=== PATIENT | female | born 1935 | race Asian ===

== ENCOUNTER 2022-02-09 10:55 | Emergency (ER) | payer MEDICARE, OTHER ==
[~2022-02-09] VITALS: Ht 165.1 cm; Wt 64.0 kg
--- NOTE | 2022-02-09 11:15 | NUR ---
FRANCISCA FROM [facility] C/O HEAD PAIN, L SHOULDER AND LEFT LEG PAIN S/P GLF. AAOX4 NOT IN DISTRESS, MILD PAIN VERBALIZED.
[2022-02-09] MEDS ORDERED: ACETAMINOPHEN 325 MG TABLET PO ONE (11:30)
--- NOTE | 2022-02-09 11:45 | NUR ---
PATIENT VERBALIZED HAD 2TABS. FOR PAIN AT 0900. MD INFORMED AND ORDERS TO HOLD TYLENOL 325MG.
--- NOTE | 2022-02-09 11:59 | NUR ---
X-RAY TECH. AT BED SIDE
[2022-02-09] MEDS ORDERED: ACETAMINOPHEN 325 MG TABLET ONE (12:37)
--- NOTE | 2022-02-09 14:08 | NUR ---
HANSA [phone]
[2022-02-09] MEDS ORDERED: ACET325T53 PO (14:13)
--- NOTE | 2022-02-09 14:53 | NUR ---
[facility] CALLED FOR TRANSPORT ETA IS 1700 PER MAHOGANY.
--- NOTE | 2022-02-09 17:20 | NUR ---
Patient discharged to [facility] via ambulance in stable condition. Written and verbal after care instructions given. Patient verbalizes understanding of instruction.
[2022-02-09 17:35] VITALS: BP 110/60
== END 2022-02-09 17:20 | disposition home health service (06) ==
LOC: ER 11:00
DX: S09.8XXA Other specified injuries of head, initial encounter (principal); M25.512 Pain in left shoulder; M54.6 Pain in thoracic spine; M25.552 Pain in left hip; I11.0 Hypertensive heart disease with heart failure; I50.9 Heart failure, unspecified; E11.22 Type 2 diabetes mellitus with diabetic chronic kidney disease; N18.9 Chronic kidney disease, unspecified; Z86.2 Personal history of diseases of the blood and blood-forming organs and certain disorders involving the immune mechanism; Z86.79 Personal history of other diseases of the circulatory system; Z88.6 Allergy status to analgesic agent; Z88.8 Allergy status to other drugs, medicaments and biological substances; Z79.1 Long term (current) use of non-steroidal anti-inflammatories (NSAID); W18.30XA Fall on same level, unspecified, initial encounter; Y93.89 Activity, other specified; Y92.89 Other specified places as the place of occurrence of the external cause; Y99.8 Other external cause status
CPT/HCPCS: 70450-TC; 72125-TC; 73030-TC; 73502; 73564-TC

== ENCOUNTER 2024-12-31 15:50 | Inpatient (IN) | payer MEDICARE, OTHER ==
[~2024-12-31] VITALS: Ht 154.9 cm; Wt 55.8 kg
[~2024-12-31 15:50] MED LIST: ACET325T53 PO
[2024-12-31 16:26] LABS: ABG BASE EXCESS 0.3 mmol/L (-2.0-3.0); ABG OXYGEN SATURATION 96.7 % (94.0-98.0); ABG PCO2 38.4 mmHg (32.0-45.0); ABG PH 7.424 (7.350-7.450); ABG PO2 88.1 mmHg (83.0-108.0); ABG TOTAL HEMOGLOBIN 12.7 G/dL (12.0-16.0); COHb 0.3 % (0.5-1.5); MetHb 0.2 % (0.0-1.5); O2Hb 96.2 % (94.0-97.0); SITE, ABG LEFT RADIAL
[2024-12-31 16:51] LABS: BASOPHILS # (AUTO) 0.1 K/uL (0.0-0.2); BASOPHILS % (AUTO) 0.7 % (0.0-2.0); EOSINOPHILS # (AUTO) 0.2 K/uL (0.0-0.7); HEMOGLOBIN 12.1 g/dL (11.5-14.8); NEUTROPHILS # (AUTO) 6.7 K/uL (1.8-8.9)
[2024-12-31] MEDS ORDERED: CRAN425C6 PO (16:51)
[2024-12-31] MEDS ORDERED: CHOL100062 PO (16:51)
[2024-12-31] MEDS ORDERED: SODI15DR4 LEFTEYE (16:51)
[2024-12-31] MEDS ORDERED: DIVA-76 PO (16:51)
[2024-12-31] MEDS ORDERED: DIVA125T32 PO (16:51)
[2024-12-31] MEDS ORDERED: IPRA3AMP22 IH (16:51)
[2024-12-31] MEDS ORDERED: MAGN400O6 PO (16:51)
[2024-12-31] MEDS ORDERED: MULT-447 PO (16:51)
[2024-12-31] MEDS ORDERED: INSU100I47 SQ (16:51)
[2024-12-31 16:54] LABS: EOSINOPHILS % (AUTO) 2.5 % (0.0-6.0); HEMATOCRIT 37 % (33-45); INR 1.1 (0.91-1.10); LYMPHOCYTES # (AUTO) 1.7 K/uL (0.8-4.8); LYMPHOCYTES % (AUTO) 18.3 % (20.0-44.0); MEAN CORPUSCULAR HEMOGLOBIN 30 PG (26.0-33.0); MEAN CORPUSCULAR HGB CONC 33 g/dl (31.0-36.0); MEAN CORPUSCULAR VOLUME 92 fL (82-100); MONOCYTES # (AUTO) 0.5 K/uL (0.1-1.30); MONOCYTES % (AUTO) 5.7 % (2.0-12.0); NEUTROPHILS % (AUTO) 72.8 % (43.0-81.0); PLATELET COUNT (AUTO) 367 K/uL (150-450); PROTHROMBIN TIME 11.6 SECS (9.2-11.1); RED BLOOD CELL COUNT(AUTO) 4.01 MIL/uL (4.0-5.2); RED CELL DISTRIBUTION WIDTH 12.2 % (11.5-15.0); WHITE BLOOD COUNT (AUTO) 9.2 K/uL (4.3-11.0)
[2024-12-31 16:58] LABS: CALCIUM, SERUM 8.4 mg/dL (8.5-10.1); CARBON DIOXIDE 29 mmol/L (21-32); CHLORIDE 100 mmol/L (98-107); CREATININE 1.2 mg/dL (0.6-1.3); POTASSIUM 3.6 mmol/L (3.5-5.1); SODIUM SERUM 135 mmol/L (136-145); UREA NITROGEN, BLOOD 28 mg/dL (7-18)
[2024-12-31] MEDS ORDERED: ACETAMINOPHEN 325 MG TABLET PO PRN (17:00)
[2024-12-31] MEDS ORDERED: MAG HYDROX/AL HYDROX/SIMETH 30 ML UDC PO PRN (17:00)
[2024-12-31] MEDS ORDERED: ONDANSETRON HCL/PF 4 MG/2 ML VIAL IVP PRN (17:00)
[2024-12-31] MEDS ORDERED: Z GUARD REMEDY 4 OZ OINT TP PRN (17:00)
[2024-12-31] MEDS ORDERED: MAGNESIUM HYDROXIDE 30 ML UDC PO PRN (17:00)
[2024-12-31 17:05] LABS: GLUCOSE 437 mg/dL (74-106)
[2024-12-31 17:08] LABS: LACTIC ACID 4.2 mmol/L (0.4-2.0)
[2024-12-31 17:14] LABS: NT-PRO BNP 1006 pg/mL (0-125)
[2024-12-31] MEDS: AZITHROMYCIN 500 MG in IV D5W 250 ML IV ONE (17:30)
[2024-12-31] MEDS: CEFTRIAXONE 1 G in IV D5W 50 ML IV ONE (17:30)
[2024-12-31] MEDS: IV NS 0.9% 1,000 ML BAG IV ONE (17:30)
[2024-12-31] MEDS ORDERED: CEFTRIAXONE 1GM BAG (ER ONLY) 50 ML IV ONE (18:51)
[2024-12-31 18:57] LABS: APPEARANCE,URINE SLIGHTLY CLOUDY (CLEAR); BILIRUBIN,URINE NEGATIVE (NEGATIVE); BLOOD, URINE TRACE-INTA Ery/uL (NEGATIVE); COLOR,URINE YELLOW (YELLOW); KETONES,URINE NEGATIVE (NEGATIVE); LEUKOCYTE ESTERASE ,URINE 2+ (NEGATIVE); NITRITE, URINE NEGATIVE (NEGATIVE); PROTEIN,URINE NEGATIVE (NEGATIVE); UGLUCOSE 3+ mg/dL (NEGATIVE); UROBILINOGEN,URINE 0.2 EU/dL (0.2)
[2024-12-31 19:32] LABS: BILIRUBIN,DIRECT 0.2 mg/dL (0.0-0.2); BILIRUBIN,TOTAL 0.4 mg/dL (0.2-1.0)
[2024-12-31 19:33] LABS: ADD URINE CULTURE YES; BACTERIA,URINE Many /HPF (None Seen); RBC,URINE 0-2 /HPF (0-2); SQUAMOUS EPITHELIAL CELL,UR Few /HPF (None Seen); YEAST,URINE Few /HPF (None Seen)
[2024-12-31 19:35] LABS: LACTIC ACID REFLEX 1.9 mmol/L (0.4-1.9)
[2024-12-31 21:30] VITALS: BP 107/86; TEMP 98.1; O2SAT 96
[2024-12-31] MEDS: INSULIN REGULAR, HUMAN 100 UNIT/ML 10 ML VIAL IV ONE (22:13)
[2024-12-31 23:00] VITALS: BP 107/86; TEMP 98.1; O2SAT 96
[2024-12-31] MEDS: FLUCONAZOLE (100 MG) 100 MG TABLET PO STA (23:00)
[2024-12-31] MEDS ORDERED: DEXTROSE 50%-WATER 50 ML DISP.SYRIN IV PRN (23:30)
[2025-01-01] MEDS: BLOOD SUGAR DIAGNOSTIC 1 EACH STRIP IN SCH (06:18)
[2025-01-01] MEDS: INSULIN REGULAR, HUMAN 100 UNIT/ML 3 ML VIAL SQ PRN (06:19)
[2025-01-01 06:59] LABS: BASOPHILS % (AUTO) 0.4 % (0.0-2.0); EOSINOPHILS # (AUTO) 0.2 K/uL (0.0-0.7); EOSINOPHILS % (AUTO) 1.8 % (0.0-6.0); HEMATOCRIT 38 % (33-45); HEMOGLOBIN 12.5 g/dL (11.5-14.8); LYMPHOCYTES % (AUTO) 8.2 % (20.0-44.0); MEAN CORPUSCULAR HEMOGLOBIN 31 PG (26.0-33.0); MEAN CORPUSCULAR HGB CONC 33 g/dl (31.0-36.0); MEAN CORPUSCULAR VOLUME 93 fL (82-100); MONOCYTES # (AUTO) 0.4 K/uL (0.1-1.30); MONOCYTES % (AUTO) 3.8 % (2.0-12.0); NEUTROPHILS # (AUTO) 10.2 K/uL (1.8-8.9); NEUTROPHILS % (AUTO) 85.8 % (43.0-81.0); PLATELET COUNT (AUTO) 366 K/uL (150-450); RED BLOOD CELL COUNT(AUTO) 4.06 MIL/uL (4.0-5.2); RED CELL DISTRIBUTION WIDTH 12.2 % (11.5-15.0); WHITE BLOOD COUNT (AUTO) 11.9 K/uL (4.3-11.0)
[2025-01-01 07:17] LABS: CALCIUM, SERUM 8.6 mg/dL (8.5-10.1); CREATININE 0.9 mg/dL (0.6-1.3); PHOSPHORUS 2.8 mg/dL (2.5-4.9); POTASSIUM 3.4 mmol/L (3.5-5.1)
[2025-01-01 08:56] VITALS: BP 122/65; TEMP 97.9; O2SAT 90
[2025-01-01] MEDS: THERAHONEY GEL 1.5 OZ TUBE TP SCH (11:51)
[2025-01-01] MEDS: POTASSIUM CHLORIDE 20 MEQ TAB.PRT.SR PO SCH (11:56)
[2025-01-01 12:21] VITALS: BP 129/63; TEMP 98.1; O2SAT 96
[2025-01-01] MEDS: POTASSIUM CHLORIDE 20 MEQ POWDER PACKET PO ONE (14:15)
[2025-01-01] MEDS ORDERED: IV NS 0.9% 250 ML IV ONE (16:35)
[2025-01-01] MEDS ORDERED: IOHEXOL-350 100 ML VIAL IV ONE (16:35)
[2025-01-01 16:40] VITALS: BP 118/57; TEMP 98.8; O2SAT 91
[2025-01-01 20:00] VITALS: BP 139/71; TEMP 98.2; O2SAT 94
[2025-01-02] VITALS: BP 140/71; TEMP 98.4; O2SAT 95
[2025-01-02 04:00] VITALS: BP 132/69; TEMP 98.2; O2SAT 94
[2025-01-02] MEDS ORDERED: ALBUTEROL FS 2.5 MG/0.5 ML VIAL.NEB NEB PRN (07:30)
[2025-01-02] MEDS: FUROSEMIDE 20 MG/2 ML VIAL IV SCH (09:01)
[2025-01-02] MEDS: CEFTRIAXONE 1 G in IV D5W 50 ML IV SCH (09:02)
[2025-01-02] MEDS ORDERED: SODIUM CHLORIDE 5% SOLN OPHTH 15 ML BOTTLE LEFTEYE PRN (10:30)
[2025-01-02] MEDS ORDERED: HOME MED MISCELLANEOUS XX SCH (10:30)
[2025-01-02] MEDS ORDERED: MAGNESIUM HYDROXIDE 30 ML UDC PO PRN (10:30)
[2025-01-02] MEDS: CHOLECALCIFEROL 1,000 UNIT TABLET (VIT D3) PO SCH (11:16)
[2025-01-02] MEDS: DIVALPROEX SODIUM 125 MG TABLET.DR PO SCH (11:16)
[2025-01-02] MEDS: MULTIVITAMINS,THERAGRAN 1 UDTAB TABLET PO SCH (11:16)
[2025-01-02] MEDS ORDERED: BENZONATATE 100 MG CAPSULE PO PRN (15:00)
[2025-01-02] MEDS: DIVALPROEX SODIUM 250 MG TABLET.DR PO SCH (18:02)
[2025-01-02 20:00] VITALS: BP 111/60; TEMP 97.7; O2SAT 97
[2025-01-02] MEDS: INSULIN GLARGINE, 100 UNIT/ML CARTRIDGE SQ SCH (22:18)
[2025-01-03] VITALS: BP 108/62; TEMP 97.3; TEMP 97.8; O2SAT 92; O2SAT 95
[2025-01-03 04:00] VITALS: BP 120/53; TEMP 97.9; O2SAT 93
[2025-01-03 08:00] VITALS: BP 107/60; TEMP 98; O2SAT 91
[2025-01-03 12:25] LABS: THYROID STIMULATING HORMONE 0.66 uIU/mL (0.358-3.74)
[2025-01-03 16:00] VITALS: BP 100/49; TEMP 98.2; O2SAT 89
[2025-01-03 20:00] VITALS: BP 118/57; TEMP 98.2; O2SAT 94
[2025-01-03] MEDS: INSULIN GLARGINE, 100 UNIT/ML CARTRIDGE SQ SCH (22:20)
[2025-01-04] VITALS: BP 114/60; TEMP 98; O2SAT 93
[2025-01-04 04:00] VITALS: BP 113/73; TEMP 97.7; O2SAT 94
[2025-01-04 08:51] VITALS: BP 118/62; TEMP 97.9; O2SAT 98
[2025-01-04] MEDS ORDERED: FURO-145 PO (10:04)
[2025-01-04 12:49] LABS: BASOPHILS # (AUTO) 0.1 K/uL (0.0-0.2); BASOPHILS % (AUTO) 0.8 % (0.0-2.0); EOSINOPHILS # (AUTO) 0.3 K/uL (0.0-0.7); EOSINOPHILS % (AUTO) 3.7 % (0.0-6.0); HEMATOCRIT 40 % (33-45); HEMOGLOBIN 13.2 g/dL (11.5-14.8); LYMPHOCYTES # (AUTO) 1.2 K/uL (0.8-4.8); LYMPHOCYTES % (AUTO) 14.4 % (20.0-44.0); MEAN CORPUSCULAR HEMOGLOBIN 31 PG (26.0-33.0); MEAN CORPUSCULAR HGB CONC 33 g/dl (31.0-36.0); MEAN CORPUSCULAR VOLUME 94 fL (82-100); MONOCYTES # (AUTO) 0.4 K/uL (0.1-1.30); MONOCYTES % (AUTO) 4.8 % (2.0-12.0); NEUTROPHILS # (AUTO) 6.3 K/uL (1.8-8.9); NEUTROPHILS % (AUTO) 76.3 % (43.0-81.0); PLATELET COUNT (AUTO) 409 K/uL (150-450); RED BLOOD CELL COUNT(AUTO) 4.24 MIL/uL (4.0-5.2); RED CELL DISTRIBUTION WIDTH 12.4 % (11.5-15.0); WHITE BLOOD COUNT (AUTO) 8.3 K/uL (4.3-11.0)
[2025-01-04 12:52] LABS: CALCIUM, SERUM 8.6 mg/dL (8.5-10.1); CREATININE 1.4 mg/dL (0.6-1.3); POTASSIUM 3.3 mmol/L (3.5-5.1)
[2025-01-05 08:07] LABS: FOLIC ACID 9.8 ng/mL (>3.0)
== END 2025-01-04 15:30 | DRG 280 ==
LOC: ER 15:55 → TELE1 18:49 → TELE 21:08 → UNDODISIN 01-02 13:31
PROVIDERS: ADMIT Internal Medicine; ATTEND Internal Medicine
DX: I13.0 Hypertensive heart and chronic kidney disease with heart failure and stage 1 through stage 4 chronic kidney disease, or unspecified chronic kidney disease (principal); G93.41 Metabolic encephalopathy; I21.A1 Myocardial infarction type 2; J96.01 Acute respiratory failure with hypoxia; I50.43 Acute on chronic combined systolic (congestive) and diastolic (congestive) heart failure; M84.48XA Pathological fracture, other site, initial encounter for fracture; E87.1 Hypo-osmolality and hyponatremia; F02.818 Dementia in other diseases classified elsewhere, unspecified severity, with other behavioral disturbance; N18.9 Chronic kidney disease, unspecified; E11.22 Type 2 diabetes mellitus with diabetic chronic kidney disease; E11.65 Type 2 diabetes mellitus with hyperglycemia; Z79.51 Long term (current) use of inhaled steroids; Z79.899 Other long term (current) drug therapy; Z79.4 Long term (current) use of insulin; Z88.6 Allergy status to analgesic agent; Z88.1 Allergy status to other antibiotic agents; F09 Unspecified mental disorder due to known physiological condition; B96.89 Other specified bacterial agents as the cause of diseases classified elsewhere; G30.9 Alzheimer's disease, unspecified; F94.0 Selective mutism
CPT/HCPCS: 36415; 36600; 70450-TC; 71045-TC; 80048-TC; 81001; 82010-TC; 82247-TC; 82248-TC; 82607-TC; 82803-TC; 82962-TC; 83605-TC; 83735-TC; 83880; 83921; 84100-TC; 84425; 84443-TC; 84484-TC; 85025-TC; 85730-TC; 87040-TC; 87081-TC; 87086-TC; 92526; 92611-TC; 93307-TC; 97110-TC; 97116-TC; 97530-TC; A4223; G0378; J0456; J0696; J1815; J1940; J7040; J7050; J7060; Q9967

== ENCOUNTER 2025-08-21 10:25 | Inpatient (IN) | payer MEDICARE, OTHER ==
[~2025-08-21] VITALS: Ht 154.9 cm; Wt 54.9 kg
[~2025-08-21 10:25] MED LIST changes: -ACET325T53 PO; +CHOL100062 PO; +CRAN425C6 PO; +DIVA-76 PO; +DIVA125T32 PO; +FURO-145 PO; +INSU100I47 SQ; +IPRA3AMP22 IH; +MAGN400O6 PO; +MULT-447 PO; +SODI15DR4 LEFTEYE
[2025-08-21 11:06] LABS: PLATELET COUNT (AUTO) 225 K/uL (150-450); RED BLOOD CELL COUNT(AUTO) 4.57 MIL/uL (4.0-5.2); RED CELL DISTRIBUTION WIDTH 12.7 % (11.5-15.0); WHITE BLOOD COUNT (AUTO) 6.8 K/uL (4.3-11.0)
[2025-08-21 11:17] LABS: CALCIUM, SERUM 8.7 mg/dL (8.5-10.1); CREATININE 1.1 mg/dL (0.6-1.3); SODIUM SERUM 139 mmol/L (136-145); UREA NITROGEN, BLOOD 11 mg/dL (7-18)
[2025-08-21 11:23] LABS: ASPARTATE AMINOTRANSFERASE 19 U/L (15-37); TOTAL PROTEIN, SERUM 7.3 g/dL (6.4-8.2)
[2025-08-21 13:28] LABS: APPEARANCE,URINE CLOUDY (CLEAR); BLOOD, URINE NEGATIVE Ery/uL (NEGATIVE); LEUKOCYTE ESTERASE ,URINE 2+ (NEGATIVE); NITRITE, URINE NEGATIVE (NEGATIVE); UGLUCOSE NEGATIVE (NEGATIVE)
[2025-08-21 13:35] LABS: ADD URINE CULTURE YES
[2025-08-21 13:36] LABS: SQUAMOUS EPITHELIAL CELL,UR 0-2 /HPF (None Seen)
[2025-08-21] MEDS ORDERED: ONDANSETRON HCL/PF 4 MG/2 ML VIAL IVP PRN (15:30)
[2025-08-21] MEDS ORDERED: MAGNESIUM HYDROXIDE 30 ML UDC PO PRN ×2 (15:30)
[2025-08-21] MEDS ORDERED: Z GUARD REMEDY 4 OZ OINT TP PRN (15:30)
[2025-08-21 16:00] VITALS: BP_SYST 142; BP_SYST 150; BP_SYST 156; BP_DIAS 80; BP_DIAS 86; BP_DIAS 90; TEMP 98; TEMP 98.7; O2SAT 96
[2025-08-21] MEDS: ENOXAPARIN SODIUM 30 MG/0.3 ML DISP.SYRIN SQ SCH (16:25)
[2025-08-21] MEDS: CEFTRIAXONE 1 G in IV D5W 50 ML IV SCH (16:38)
[2025-08-21] MEDS: DIVALPROEX SODIUM 250 MG TABLET.DR PO SCH (17:57)
[2025-08-21] MEDS ORDERED: DEXTROSE 50%-WATER 50 ML DISP.SYRIN IV PRN (19:30)
[2025-08-21 20:00] VITALS: BP 135/63; TEMP 98.2; O2SAT 94
[2025-08-21] MEDS: BLOOD SUGAR DIAGNOSTIC 1 EACH STRIP VI SCH (20:09)
[2025-08-21] MEDS: INSULIN REGULAR, HUMAN 100 UNIT/ML 3 ML VIAL SQ PRN (20:25)
[2025-08-22] VITALS: BP 151/65; TEMP 98.1; O2SAT 95
[2025-08-22 04:00] VITALS: BP 125/79; TEMP 99; O2SAT 98
[2025-08-22 07:07] LABS: PLATELET COUNT (AUTO) 205 K/uL (150-450); RED BLOOD CELL COUNT(AUTO) 4.60 MIL/uL (4.0-5.2); RED CELL DISTRIBUTION WIDTH 12.9 % (11.5-15.0); WHITE BLOOD COUNT (AUTO) 7.0 K/uL (4.3-11.0)
[2025-08-22] MEDS: PANTOPRAZOLE 40 MG TABLET.DR PO SCH (07:30)
[2025-08-22 07:32] LABS: CALCIUM, SERUM 8.6 mg/dL (8.5-10.1); CREATININE 1.1 mg/dL (0.6-1.3); PHOSPHORUS 3.4 mg/dL (2.5-4.9); SODIUM SERUM 142.0 mmol/L (136-145); UREA NITROGEN, BLOOD 13.0 mg/dL (7-18)
[2025-08-22 07:49] LABS: LDL 145.0 mg/dL (0-99)
[2025-08-22 08:00] VITALS: BP 128/61; TEMP 97.7; O2SAT 92
[2025-08-22] MEDS ORDERED: HYDR-4076 PO (08:44)
[2025-08-22] MEDS ORDERED: ACET325T53 PO (08:44)
[2025-08-22] MEDS: DIVALPROEX SODIUM 125 MG TABLET.DR PO SCH (09:00)
[2025-08-22] MEDS: FUROSEMIDE 20 MG TABLET PO SCH (09:00)
[2025-08-22] MEDS ORDERED: CEPH-570 PO (10:58)
[2025-08-22 11:30] VITALS: BP 128/74; TEMP 98.2; O2SAT 95
[2025-08-22] MEDS: ACETAMINOPHEN 325 MG TABLET PO PRN (14:04)
[2025-08-22 16:00] VITALS: BP 113/52; TEMP 97; O2SAT 94
[2025-08-22 20:00] VITALS: BP 99/52; TEMP 99.5; O2SAT 91
[2025-08-23 07:00] VITALS: BP 132/63; TEMP 97.4; O2SAT 94
[2025-08-23 16:00] VITALS: BP 110/58; TEMP 97.3; O2SAT 94
[2025-08-23 20:00] VITALS: BP_SYST 130; BP_SYST 136; BP_DIAS 49; BP_DIAS 60; TEMP 97.5; O2SAT 93; O2SAT 94
[2025-08-24 08:00] VITALS: BP 139/78; TEMP 99.5; O2SAT 96
[2025-08-24 11:18] LABS: PLATELET COUNT (AUTO) 190 K/uL (150-450); RED BLOOD CELL COUNT(AUTO) 4.26 MIL/uL (4.0-5.2); RED CELL DISTRIBUTION WIDTH 12.8 % (11.5-15.0); WHITE BLOOD COUNT (AUTO) 5.5 K/uL (4.3-11.0)
[2025-08-24 11:29] LABS: CALCIUM, SERUM 8.6 mg/dL (8.5-10.1); CREATININE 1.1 mg/dL (0.6-1.3); PHOSPHORUS 2.9 mg/dL (2.5-4.9); SODIUM SERUM 144.0 mmol/L (136-145); UREA NITROGEN, BLOOD 17.0 mg/dL (7-18)
== END 2025-08-24 12:58 | DRG 73 ==
LOC: ER 10:32 → TELE 14:28 → MED 08-22 18:39
PROVIDERS: ADMIT Nurse Practitioner Acute Care; ATTEND Nurse Practitioner Acute Care
PROC: 0W993ZX Drainage of Right Pleural Cavity, Percutaneous Approach, Diagnostic (ICD-10-PCS; principal; 2025-08-23)
DX: G90.89 Other disorders of autonomic nervous system (principal); G93.41 Metabolic encephalopathy; I21.A1 Myocardial infarction type 2; N39.0 Urinary tract infection, site not specified; I13.0 Hypertensive heart and chronic kidney disease with heart failure and stage 1 through stage 4 chronic kidney disease, or unspecified chronic kidney disease; F03.92 Unspecified dementia, unspecified severity, with psychotic disturbance; F03.93 Unspecified dementia, unspecified severity, with mood disturbance; E11.22 Type 2 diabetes mellitus with diabetic chronic kidney disease; E11.51 Type 2 diabetes mellitus with diabetic peripheral angiopathy without gangrene; E11.65 Type 2 diabetes mellitus with hyperglycemia; E78.5 Hyperlipidemia, unspecified; I50.9 Heart failure, unspecified; N18.9 Chronic kidney disease, unspecified; W01.0XXA Fall on same level from slipping, tripping and stumbling without subsequent striking against object, initial encounter; Y92.129 Unspecified place in nursing home as the place of occurrence of the external cause; K21.9 Gastro-esophageal reflux disease without esophagitis; S09.90XA Unspecified injury of head, initial encounter; M85.80 Other specified disorders of bone density and structure, unspecified site; J45.909 Unspecified asthma, uncomplicated; F29 Unspecified psychosis not due to a substance or known physiological condition; Z87.442 Personal history of urinary calculi; Z88.1 Allergy status to other antibiotic agents; Z88.6 Allergy status to analgesic agent; Z90.49 Acquired absence of other specified parts of digestive tract; Z96.641 Presence of right artificial hip joint; Z79.4 Long term (current) use of insulin; Z79.899 Other long term (current) drug therapy; Z79.51 Long term (current) use of inhaled steroids; F39 Unspecified mood [affective] disorder
CPT/HCPCS: 36415; 70450-TC; 71045-TC; 72125-TC; 72170-TC; 80048-TC; 80061-TC; 80076-TC; 80164-TC; 81001; 82962-TC; 83735-TC; 83880; 84100-TC; 84484-TC; 85025-TC; 87081-TC; 87086-TC; 87186-TC; 93307-TC; A4223; G0378; J0696; J1650; J1815; J7050; J7060; L0172